=== PATIENT | male | born 1975 | race African-American/Black ===

== ENCOUNTER 2021-07-27 09:39 | Emergency (ER) | payer BC ==
[~2021-07-27] VITALS: Ht 177.8 cm; Wt 113.0 kg
[2021-07-27] MEDS ORDERED: LABETALOL HCL VIAL 20 MG/4 ML VIAL IV ONE (10:00)
[2021-07-27] MEDS ORDERED: SODIUM CHLORIDE 0.9% 1,000 ML IV ONE (10:00)
[2021-07-27] MEDS ORDERED: LABETALOL 5MG/ML SYR 20 MG/4 ML SYRINGE IV ONE (10:15)
[2021-07-27 10:37] LABS: BASOPHILS % 1.2 % (0.0-2.0); EOSINOPHILS % 0.9 % (0.0-5.0); HEMATOCRIT. 45.7 % (42.0-52.0); HEMOGLOBIN. 15.2 g/dL (14.0-18.0); LYMPHOCYTES % 43.4 % (20.0-50.0); MEAN CORPUSCULAR HEMOGLOBIN 27.2 pg (28.0-32.0); MEAN CORPUSCULAR VOLUME 81.7 fL (80.0-94.0); MEAN PLATELET VOLUME 7.7 fl (7.4-10.4); MONOCYTES % 7.3 % (2.0-8.0); NEUTROPHILS % 47.2 % (40.0-76.0); PLATELET 280 x1000/uL (130-400); RED BLOOD CELL COUNT 5.59 mill/uL (4.7-6.1); RED CELL DISTRIBUTION WIDTH 13.6 % (11.6-14.6)
[2021-07-27 10:43] LABS: CLARITY URINE CLEAR (CLEAR); COLOR URINE YELLOW (YELLOW); KETONES URINE NEGATIVE (NEGATIVE); LEUKOCYTE ESTERASE URINE NEGATIVE (NEGATIVE); NITRITE URINE NEGATIVE (NEGATIVE); OCCULT BLOOD URINE NEGATIVE (NEGATIVE); PH URINE 6.5 (4.5-8.0); PROTEIN URINE NEGATIVE (NEGATIVE); SPECIFIC GRAVITY URINE 1.021 (1.005-1.030); UROBILINOGEN URINE 0.2 E.U./dL (0.2-1.0)
[2021-07-27 10:44] LABS: CHLORIDE 101 mEq/L (98-107)
[2021-07-27] MEDS ORDERED: LOSARTAN POTASSIUM 100 MG TABLET PO ONE (11:45)
[2021-07-27] MEDS ORDERED: AMLODIPINE 10MG TABLET PO ONE (11:45)
[2021-07-27] MEDS ORDERED: KETOROLAC 30MG/ML VIAL IV ONE (11:45)
[2021-07-27] MEDS ORDERED: VALS160T28 MT (12:30)
[2021-07-27] MEDS ORDERED: AMLO5TAB88 MT (12:30)
[2021-07-27 12:45] VITALS: BP 163/104
== END 2021-07-27 12:55 | disposition home or self-care (01) ==
LOC: ER 10:00
DX: I10 Essential (primary) hypertension (principal)
CPT/HCPCS: 36415; 70450; 71045; 80053; 81003; 83880; 84484; 85025; 93005; 96361; 96374; 96375; 99285; J1885; J3490; J7030